=== PATIENT | male | born 1970 | race Caucasian/White ===

== ENCOUNTER → 2023-08-23 09:52 | Outpatient (REF) | payer OTHER, SELFPAY | LOC: HWRAD 09:52 | PROVIDERS: ATTENDING PHYSICIAN Physician Assistant; FAMILY PHYSICIAN Family Medicine | DX: R07.89 Other chest pain (principal) | CPT/HCPCS: 71046 ==

== ENCOUNTER → 2023-09-19 13:59 | Outpatient (REF) | payer OTHER, SELFPAY | LOC: DHCBC HW 13:59 | PROVIDERS: ATTENDING PHYSICIAN Internal Medicine Cardiovascular Disease; FAMILY PHYSICIAN Family Medicine | DX: R07.2 Precordial pain (principal); I10 Essential (primary) hypertension | CPT/HCPCS: 93320 ==

== ENCOUNTER → 2023-09-26 13:31 | Outpatient (REF) | payer OTHER, SELFPAY | LOC: RCS 13:31 | PROVIDERS: ATTENDING PHYSICIAN Internal Medicine Cardiovascular Disease; FAMILY PHYSICIAN Family Medicine | DX: R07.2 Precordial pain (principal) | CPT/HCPCS: 93017; 93350 ==

== ENCOUNTER → 2024-03-26 10:02 | Outpatient (REF) | payer OTHER, SELFPAY ==
[2024-03-26 18:52] LABS: Hepatitis B Surface Antibody Negative
[2024-03-26 19:19] LABS: Rubella Positive
[2024-03-28 09:26] LABS: Quantiferon Mitogen minus NIL 9.96 IU/mL; Quantiferon NIL 0.04 IU/mL; Quantiferon TB Gold Plus Negative (Negative)
== END ==
LOC: REG 10:02
PROVIDERS: ATTENDING PHYSICIAN Nurse Practitioner Family
DX: Z23 Encounter for immunization (principal)
CPT/HCPCS: 36415; 86480; 86706; 86735; 86762; 86765; 86787

== ENCOUNTER → 2024-05-28 16:39 | Outpatient (REF) | payer OTHER, SELFPAY ==
[2024-05-28 19:22] LABS: Hepatitis B Surface Antibody Positive
== END ==
LOC: OHS 16:39
PROVIDERS: ATTENDING PHYSICIAN Nurse Practitioner Family; FAMILY PHYSICIAN Family Medicine
DX: Z23 Encounter for immunization (principal)
CPT/HCPCS: 36415; 86706